=== PATIENT | female | born 1950 | race Caucasian/White ===

== ENCOUNTER → 2020-12-24 | Outpatient (CLI) | payer OTHER | END | disposition home or self-care (01) | LOC: RAH 11:16 | PROVIDERS: ATTEND Otolaryngology Plastic Surgery within the Head & Neck | DX: J01.00 Acute maxillary sinusitis, unspecified (principal) | CPT/HCPCS: 70486 ==

== ENCOUNTER → 2022-12-07 | Outpatient (CLI) | payer OTHER | END | disposition home or self-care (01) | LOC: RAH 12:56 | PROVIDERS: ATTEND Internal Medicine Cardiovascular Disease | DX: Z13.6 Encounter for screening for cardiovascular disorders (principal); R93.1 Abnormal findings on diagnostic imaging of heart and coronary circulation | CPT/HCPCS: 75571 ==

== ENCOUNTER → 2022-12-15 | Outpatient (CLI) | payer OTHER | END | disposition home or self-care (01) | LOC: SHCH 14:50 | PROVIDERS: ATTEND Internal Medicine Cardiovascular Disease | DX: R94.31 Abnormal electrocardiogram [ECG] [EKG] (principal); R00.2 Palpitations; I51.89 Other ill-defined heart diseases | CPT/HCPCS: 93306 ==

== ENCOUNTER → 2024-01-31 | Outpatient (CLI) | payer OTHER | END | disposition home or self-care (01) | LOC: RAH 12:37 | PROVIDERS: ATTEND Internal Medicine Hematology & Oncology | DX: C50.211 Malignant neoplasm of upper-inner quadrant of right female breast (principal); M89.9 Disorder of bone, unspecified; E86.0 Dehydration; M17.0 Bilateral primary osteoarthritis of knee; M19.072 Primary osteoarthritis, left ankle and foot; M19.071 Primary osteoarthritis, right ankle and foot; M19.032 Primary osteoarthritis, left wrist; M19.031 Primary osteoarthritis, right wrist; M19.012 Primary osteoarthritis, left shoulder; M19.011 Primary osteoarthritis, right shoulder; M19.022 Primary osteoarthritis, left elbow; M19.021 Primary osteoarthritis, right elbow; Z85.3 Personal history of malignant neoplasm of breast | CPT/HCPCS: 78306; A9503 ==

== ENCOUNTER → 2025-06-24 | Outpatient (CLI) | payer OTHER ==
[~2025-06-24] MED LIST: IOHEXOL-350 50ML VIAL IV ONE
--- NOTE | 2025-06-24 14:20 | HMCIMG ---
EXAM: US Pelvis, Complete Transvaginal and Transabdominal COMPARISON: None provided. CLINICAL HISTORY: Unspecified abdominal pain/ PELVIC PAIN TECHNIQUE: Transvaginal and transabdominal pelvic ultrasound (complete) with image documentation. FINDINGS: ENDOMETRIUM: Normal thickness. UTERUS/CERVIX: Hysterectomy changes RIGHT OVARY: Nonvisualized LEFT OVARY: Nonvisualized. No adnexal mass. FREE FLUID: No free fluid. IMPRESSION: Evidence of hysterectomy /[place]
--- NOTE | 2025-06-24 14:23 | HMCIMG ---
EXAM: US Abdomen complete CLINICAL HISTORY: Unspecified abdominal pain TECHNIQUE: Real-time ultrasound of the abdomen (complete) with image documentation. COMPARISON: None provided. FINDINGS: LIVER: No mass or biliary dilatation. The liver contours are smooth. GALLBLADDER: The gallbladder is normal in appearance. No gallstone or wall thickening. COMMON BILE DUCT: No dilation. PANCREAS: Unremarkable where visualized. The distal pancreas is obscured by overlying bowel gas. KIDNEYS: Normal renal contours. No renal mass or calculus. No hydronephrosis. Bilateral cysts are noted. SPLEEN: Normal in size and echogenicity. No mass identified. AORTA: No aneurysm. IVC: Unremarkable as visualized. MISCELLANEOUS: No other significant findings identified. IMPRESSION: 1. The gallbladder is normal in appearance. No gallstone or wall thickening. 2. Bilateral renal cysts /[place]
--- NOTE | 2025-06-24 16:17 | HMCIMG ---
EXAM: CT Chest with and without Intravenous Contrast. CLINICAL HISTORY: Personal history of nicotine dependence TECHNIQUE: Axial computed tomography images of the chest with and without intravenous contrast. CONTRAST: Yes COMPARISON: None provided. FINDINGS: LUNGS: Both lungs are emphysematous. No pulmonary nodules. No pulmonary infiltrates. Bibasilar atelectasis. PLEURAL SPACES: No evidence of pneumothorax. No pleural effusion. HEART: No cardiomegaly. No significant pericardial effusion. Calcifications along coronary arteries. LYMPH NODES: No lymphadenopathy is evident. BONES: Degenerative changes along visualized spine. Diffuse osteopenia. Levoscoliosis of lower dorsal-lumbar spine. UPPER ABDOMEN: The upper abdominal solid organs shows bilateral simple renal cortical cysts. Atherocalcific changes along visualized aorta and its branches with no aneurysmal dilatation. IMPRESSION: 1. Emphysema. 2. No pulmonary nodules. LUNG RADS 1: Continue annual screening with LDCT. 3. No acute cardiopulmonary findings. /[place]
== END | disposition home or self-care (01) ==
LOC: RAH 07:52
PROVIDERS: ATTEND Family Medicine
DX: J98.11 Atelectasis (principal); J43.9 Emphysema, unspecified; N28.1 Cyst of kidney, acquired; M47.814 Spondylosis without myelopathy or radiculopathy, thoracic region; M85.88 Other specified disorders of bone density and structure, other site; M41.86 Other forms of scoliosis, lumbar region; R10.20 Pelvic and perineal pain unspecified side; R10.9 Unspecified abdominal pain; Z90.710 Acquired absence of both cervix and uterus; Z87.891 Personal history of nicotine dependence
CPT/HCPCS: 76700; 71270; 76857; Q9967